=== PATIENT | male | born 1955 | race African-American/Black ===

== ENCOUNTER 2023-09-08 19:51 | Inpatient (IN) | payer OTHER ==
[~2023-09-08] VITALS: Ht 182.9 cm; Wt 112.5 kg
[2023-09-08] MEDS ORDERED: AMLODIPINE BESYLATE 10 MG TABLET ONE (21:29)
[2023-09-08] MEDS ORDERED: LOSARTAN POTASSIUM 25 MG TABLET ONE (21:29)
[2023-09-08] MEDS: LOSARTAN POTASSIUM 25 MG TABLET PO ONE (21:31)
[2023-09-08] MEDS: AMLODIPINE BESYLATE 5 MG TABLET PO ONE (21:32)
[2023-09-08] MEDS: hydrALAZINE HCL IV 20 MG VIAL IV ONE (21:32)
[2023-09-08] MEDS ORDERED: HYDROCODONE/APAP 5/325MG TABLET ONE (23:02)
[2023-09-08] MEDS: HYDROCODONE/APAP 5/325MG TABLET PO ONE (23:03)
[2023-09-09] MEDS ORDERED: hydrALAZINE HCL 50 MG TABLET ONE ×2 (00:57→12:07)
[2023-09-09] MEDS: hydrALAZINE HCL 25 MG TABLET PO ONE ×2 (01:00→12:10)
[2023-09-09 04:27] LABS: BASOPHILS % (AUTO) 0.6 % (0.0-2.0); EOSINOPHILS # (AUTO) 0.2 K/uL (0.0-0.7); EOSINOPHILS % (AUTO) 3.1 % (0.0-6.0); HEMATOCRIT 46 % (39-51); HEMOGLOBIN 14.6 g/dL (13.5-17.5); LYMPHOCYTES # (AUTO) 1.4 K/uL (0.8-4.8); LYMPHOCYTES % (AUTO) 20.7 % (20.0-44.0); MEAN CORPUSCULAR HEMOGLOBIN 24 PG (26.0-33.0); MEAN CORPUSCULAR HGB CONC 32 g/dl (31.0-36.0); MEAN CORPUSCULAR VOLUME 77 fL (80-96); MONOCYTES # (AUTO) 0.5 K/uL (0.1-1.30); MONOCYTES % (AUTO) 7.9 % (2.0-12.0); NEUTROPHILS # (AUTO) 4.5 K/uL (1.8-8.9); NEUTROPHILS % (AUTO) 67.7 % (43.0-81.0); PLATELET COUNT (AUTO) 249 K/uL (150-450); RED BLOOD CELL COUNT(AUTO) 6.01 MIL/uL (4.5-6.0); RED CELL DISTRIBUTION WIDTH 18.4 % (11.5-15.0); WHITE BLOOD COUNT (AUTO) 6.6 K/uL (4.3-11.0)
[2023-09-09 04:35] LABS: CALCIUM, SERUM 9.1 mg/dL (8.5-10.1); CARBON DIOXIDE 23 mmol/L (21-32); CHLORIDE 105 mmol/L (98-107); CREATININE 1.6 mg/dL (0.6-1.3); GLUCOSE 119 mg/dL (74-106); POTASSIUM 3.9 mmol/L (3.5-5.1); SODIUM SERUM 138 mmol/L (136-145); UREA NITROGEN, BLOOD 22 mg/dL (7-18)
[2023-09-09] MEDS: CLINDAMYCIN 900 MG in IV D5W 100 ML IV ONE (08:30)
[2023-09-09 12:51] VITALS: O2SAT 96
[2023-09-09] MEDS ORDERED: CLONIDINE HCL 0.1 MG TABLET ONE (15:28)
[2023-09-09] MEDS: CLONIDINE HCL 0.1 MG TABLET PO ONE (15:29)
[2023-09-09] MEDS ORDERED: VANCOMYCIN 1.5 GM in IV D5W 500 ML IV ONE (17:00)
[2023-09-09] MEDS ORDERED: LORAZEPAM INJ 2 MG/ML VIAL ONE (17:05)
[2023-09-09] MEDS: LORAZEPAM INJ 2 MG/ML VIAL IM ONE (17:33)
[2023-09-09] MEDS ORDERED: MAGNESIUM HYDROXIDE 30 ML UDC PO PRN (18:00)
[2023-09-09] MEDS ORDERED: MAG HYDROX/AL HYDROX/SIMETH 30 ML UDC PO PRN (18:00)
[2023-09-09] MEDS: VANCOMYCIN 1.5 GM in IV D5W 500 ML IV SCH (18:00)
[2023-09-09] MEDS ORDERED: ONDANSETRON HCL/PF 4 MG/2 ML VIAL IVP PRN (18:00)
[2023-09-09] MEDS ORDERED: Z GUARD REMEDY 4 OZ OINT TP PRN (18:00)
[2023-09-09] MEDS ORDERED: IV NS 0.9% 1,000 ML IV PRN (18:00)
[2023-09-09] MEDS ORDERED: LORAZEPAM INJ 2 MG/ML VIAL IV PRN (18:00)
[2023-09-09] MEDS ORDERED: AMLO-213 PO (18:24)
[2023-09-09] MEDS ORDERED: TAMS-12 PO (18:24)
[2023-09-09] MEDS ORDERED: METO75TA PO (18:24)
[2023-09-09] MEDS ORDERED: LOSA50TA39 PO (18:24)
[2023-09-09] MEDS ORDERED: ATOR40TA PO (18:24)
[2023-09-09] MEDS ORDERED: APIX5TAB PO (18:24)
[2023-09-09] MEDS ORDERED: FOLI0.8C PO (18:24)
[2023-09-09] MEDS ORDERED: QUET25TA PO (18:24)
[2023-09-09] MEDS ORDERED: ASPI-1169 PO (18:24)
[2023-09-09] MEDS ORDERED: DOCU100T2 PO (18:24)
[2023-09-09 19:55] VITALS: BP 159/106; TEMP 99.9; O2SAT 98
[2023-09-09 20:13] LABS: ALANINE AMINOTRANSFERASE 9 U/L (12-78); ALBUMIN 2.6 g/dL (3.4-5.0); ALKALINE PHOSPHATASE 124 U/L (46-116); ASPARTATE AMINOTRANSFERASE 26 U/L (15-37); BILIRUBIN,DIRECT 0.2 mg/dL (0.0-0.2); BILIRUBIN,TOTAL 0.9 mg/dL (0.2-1.0); TOTAL PROTEIN, SERUM 7.9 g/dL (6.4-8.2)
[2023-09-09 20:20] LABS: ALCOHOL, BLOOD < 3 mg/dL (0-10)
[2023-09-09] MEDS: ENOXAPARIN SODIUM 40 MG/0.4 ML DISP.SYRIN SQ SCH (21:00)
[2023-09-10] MEDS: hydrALAZINE HCL 25 MG TABLET PO PRN (03:30)
[2023-09-10 08:00] VITALS: BP 143/100; TEMP 98.1; O2SAT 94
[2023-09-10] MEDS: AMLODIPINE BESYLATE 5 MG TABLET PO SCH (09:33)
[2023-09-10] MEDS: FOLIC ACID 1 MG TABLET PO SCH (12:38)
[2023-09-10] MEDS: METOPROLOL TARTRATE 25 MG TABLET PO SCH (12:39)
[2023-09-10] MEDS: APIXABAN 5 MG TABLET PO SCH (12:41)
[2023-09-10] MEDS: ACETAMINOPHEN 325 MG TABLET PO PRN (12:41)
[2023-09-10 16:00] VITALS: BP 127/89; TEMP 98.1; O2SAT 94
[2023-09-10] MEDS: QUETIAPINE FUMARATE 25 MG TABLET PO SCH (17:02)
[2023-09-10] MEDS: DOCUSATE SODIUM 100 MG CAPSULE PO SCH (17:02)
[2023-09-10 20:00] VITALS: BP 146/92; TEMP 98.6; O2SAT 93
[2023-09-10] MEDS: MUPIROCIN OINT 2% 22 GM TUBE NS SCH (21:13)
[2023-09-11 08:00] VITALS: BP 154/100; TEMP 98.4; O2SAT 95
[2023-09-11] MEDS: TAMSULOSIN 0.4 MG CAP.SR.24H PO SCH (08:51)
[2023-09-11] MEDS: ASPIRIN 81 MG TAB.CHEW PO SCH (08:56)
[2023-09-11] MEDS: LOSARTAN POTASSIUM 50 MG TABLET PO SCH (08:59)
[2023-09-11] MEDS ORDERED: LEVE500T9 PO (09:35)
[2023-09-11] MEDS ORDERED: METO25TA20 PO (09:35)
[2023-09-11] MEDS ORDERED: CLIN300C12 PO (09:35)
[2023-09-11 10:28] LABS: CREATININE, URINE 238.3 MG/DL (30.0-125.0); URINE TOTAL PROTEIN 390.2 mg/dL (0-11.9)
[2023-09-11 10:36] LABS: APPEARANCE,URINE CLOUDY (CLEAR); BILIRUBIN,URINE 1+ (NEGATIVE); BLOOD, URINE TRACE-INTA Ery/uL (NEGATIVE); COLOR,URINE YELLOW (YELLOW); KETONES,URINE TRACE mg/dL (NEGATIVE); LEUKOCYTE ESTERASE ,URINE NEGATIVE (NEGATIVE); NITRITE, URINE NEGATIVE (NEGATIVE); PROTEIN,URINE 3+ mg/dl (NEGATIVE); UGLUCOSE NEGATIVE (NEGATIVE); UROBILINOGEN,URINE 0.2 EU/dL (0.2)
[2023-09-11 10:45] LABS: ADD URINE CULTURE NO; BACTERIA,URINE 1+ /HPF (None Seen); FINE GRANULAR CASTS,URINE Few /LPF (None Seen); MUCUS,URINE Moderate /LPF (None Seen); SQUAMOUS EPITHELIAL CELL,UR None Seen /HPF (None Seen); WBC,URINE NONE SEEN /HPF (0-3)
[2023-09-11 11:28] LABS: EOSINOPHIL,URINE None Seen
[2023-09-11 12:00] VITALS: BP 119/88; TEMP 98.4; O2SAT 99
[2023-09-11 16:00] VITALS: BP 134/102; TEMP 98.2; O2SAT 97
[2023-09-11 20:00] VITALS: BP 131/96; TEMP 97.7; O2SAT 98
[2023-09-12 08:00] VITALS: BP 148/100; TEMP 97.7; O2SAT 96
[2023-09-12 09:24] VITALS: BP 148/100
[2023-09-12] MEDS: LORAZEPAM 0.5 MG TABLET PO PRN (13:35)
== END 2023-09-12 16:31 | DRG 199 ==
LOC: ER 19:57 → TELE 09-09 19:34
PROVIDERS: ADMIT Internal Medicine; ATTEND Internal Medicine
DX: I16.0 Hypertensive urgency (principal); N17.0 Acute kidney failure with tubular necrosis; E44.0 Moderate protein-calorie malnutrition; R56.9 Unspecified convulsions; I50.9 Heart failure, unspecified; N18.9 Chronic kidney disease, unspecified; I13.0 Hypertensive heart and chronic kidney disease with heart failure and stage 1 through stage 4 chronic kidney disease, or unspecified chronic kidney disease; E88.09 Other disorders of plasma-protein metabolism, not elsewhere classified; G89.29 Other chronic pain; I87.2 Venous insufficiency (chronic) (peripheral); Z86.73 Personal history of transient ischemic attack (TIA), and cerebral infarction without residual deficits; I89.0 Lymphedema, not elsewhere classified; Z68.33 Body mass index [BMI] 33.0-33.9, adult; I87.313 Chronic venous hypertension (idiopathic) with ulcer of bilateral lower extremity; L97.829 Non-pressure chronic ulcer of other part of left lower leg with unspecified severity; L97.819 Non-pressure chronic ulcer of other part of right lower leg with unspecified severity; Z91.199 Patient's noncompliance with other medical treatment and regimen due to unspecified reason; I70.248 Atherosclerosis of native arteries of left leg with ulceration of other part of lower leg; I70.238 Atherosclerosis of native arteries of right leg with ulceration of other part of lower leg
CPT/HCPCS: 36415; 71045-TC; 80048-TC; 80076-TC; 81001; 82570-TC; 84300-TC; 84484-TC; 85025-TC; 87081-TC; 97110-TC; A6403; G0378; G0480; J2060; J3371; J3490; J7060